=== PATIENT | male | born 1965 | race African-American/Black ===

== ENCOUNTER 2019-05-21 12:37 | Observation (INO) | payer OTHER ==
[~2019-05-21] VITALS: Ht 157.5 cm; Wt 87.7 kg
[2019-05-21 12:47] VITALS: BP 182/88; TEMP 98.5
[2019-05-21 13:41] LABS: PLATELET COUNT 271 K/uL (142-355)
[2019-05-21 13:50] LABS: POTASSIUM 3.9 mmol/L (3.6-5.2)
[2019-05-21 14:28] LABS: PARTIAL THROMBOPLASTIN TIME 24.5 SECONDS (24.5-33.6)
[2019-05-21 14:41] VITALS: BP 152/78
[2019-05-21 16:45] VITALS: BP 138/79
--- NOTE | 2019-05-21 18:31 | NUR ---
PATIENT ASSESSED ON ADMISSION. NO ACUTE DISTRESS NOTED. GIRLFRIEMD INTERVIEWED ON ADMISSION TO FLOOR FOR INTERPRETING PURPOSES FOR PATIENT. GIRLFRIEND ASKED TO LEAVE FACILITY PER MANAGEMENT AFTER INTERVIEW D/T NATIONWIDE AND GLOBAL LOCKDOWN OF FACILITIES WITH NO VISITOR POLICIES PER [employer] RECOMMENDATIONS EXPLAINED TO GIRLFRIEND AND PATIENT. MD DOMINGUEZ IN ROOM AT TIME OF LOCKDOWN FACILITY EXPLANATION.
[2019-05-21 18:41] VITALS: BP 150/61; TEMP 98.6; Ht 157.5 cm; Wt 87.7 kg
[2019-05-21 20:00] VITALS: BP 149/78; TEMP 98.6
[2019-05-22] VITALS: BP 127/77; TEMP 97.8
[2019-05-22 04:00] VITALS: BP 143/79; TEMP 98.1
[2019-05-22 05:08] LABS: PLATELET COUNT 266 K/uL (142-355)
[2019-05-22 08:00] VITALS: BP 136/85; TEMP 97.9
--- NOTE | 2019-05-22 09:25 | NUR ---
Spoke with Samira Moreno [phone] to request that she speak with patient who is self pay to assist with Financial counseling, she will call patient to assure he has an indigent packet and will assist as needed.
[2019-05-22 12:00] VITALS: BP 132/72; TEMP 97.3
[2019-05-22] MEDS ORDERED: ASPIRIN325 M1 PO (15:03)
[2019-05-22] MEDS ORDERED: ATOR20TA2 PO (15:05)
[2019-05-22] MEDS ORDERED: LISI10TA11 PO (15:05)
[2019-05-22] MEDS ORDERED: NITR0.4S SL (15:07)
[2019-05-22] MEDS ORDERED: PANTOPRAZOLE 40MG TA PO (15:07)
== END 2019-05-22 16:30 | disposition home or self-care (01) ==
LOC: ED 12:37 → MED/SURG 17:25
PROVIDERS: Internal Medicine Endocrinology, Diabetes & Metabolism; ADMIT Family Medicine
DX: R42 Dizziness and giddiness (principal); I25.2 Old myocardial infarction; R73.9 Hyperglycemia, unspecified; I11.9 Hypertensive heart disease without heart failure
CPT/HCPCS: 36415; 80053; 80061; 80307; 81000; 82550; 83880; 84484; 85027; 85610; 85730; 93005; 93306; 96372; 99220; 99283; G0378; J1650